=== PATIENT | male | born 1990 ===

== ENCOUNTER 2020-11-05 12:23 | Outpatient (CLI) | payer OTHER ==
[~2020-11-05] VITALS: Ht 175.3 cm; Wt 88.6 kg
--- NOTE | 2020-11-05 14:30 | Consultation ---
DATE OF CONSULTATION: 11/05/2020 CONSULTING PHYSICIAN: Saurabh Fenton MD. CHIEF COMPLAINT: Chronic GERD. HISTORY OF PRESENT ILLNESS: This is a 30-year-old male with severe acid reflux disease, already had omeprazole twice a day, Flonase, has been seen by ENT. He is still having significant symptoms, although changing his diet to low caffeine and taking omeprazole had improved his symptoms, but not completely resolved his symptoms. PAST MEDICAL HISTORY: 1. Deviated septum. 2. Hypercholesteremia. 3. Diverticulosis. 4. Diabetes type 2. 5. Hypertension. PAST SURGICAL HISTORY: None. MEDICATIONS: Please see medication reconciliation list. FAMILY HISTORY: No family history of GI malignancies. SOCIAL HISTORY: The patient denies any tobacco, alcohol, or drug abuse. PHYSICAL EXAMINATION: VITAL SIGNS: Temperature 97.2, blood pressure 144/95, pulse 120, respirations 20. HEENT: Normocephalic and atraumatic. Sclerae are anicteric. NECK: Supple. No evidence of obvious lymphadenopathy. CARDIOVASCULAR: Regular rate and rhythm. Plus S1, S2. LUNGS: Clear to auscultation bilaterally. ABDOMEN: Positive bowel sounds. Soft, nontender. No rebound. No guarding. No peritoneal sign. EXTREMITIES: No cyanosis. No clubbing No edema. ASSESSMENT AND PLAN: A 30-year-old male with significant GERD. After seeing the ENT and being on omeprazole, symptoms have improved, but not completely resolved, needs an endoscopy. The patient was educated about the diet for GERD and he is going to be scheduled for endoscopy when the authorization is obtained. Saurabh Fenton M.D. DR: FRANCISCO JOB#: [id number] CC:
[2020-11-07 13:46] VITALS: BP 144/95
[2020-11-07] MEDS ORDERED: METFORMIN HCL500 M1 ORAL (14:52)
[2020-11-07] MEDS ORDERED: TRULICITY0.75 MG/0. SQ (14:52)
[2020-11-07] MEDS ORDERED: FLONASE ALLERG9.9 ML NS (14:52)
[2020-11-07] MEDS ORDERED: DIOVAN80 MG ORAL (14:52)
[2020-11-07] MEDS ORDERED: ATORVASTATIN CA20 MG ORAL (14:52)
[2020-11-07] MEDS ORDERED: OMEPRAZOLE40 M1 ORAL (14:52)
== END 2020-11-05 14:23 | disposition home or self-care (01) ==
LOC: PAN 12:23
DX: K21.9 Gastro-esophageal reflux disease without esophagitis (principal); E78.00 Pure hypercholesterolemia, unspecified; E11.9 Type 2 diabetes mellitus without complications; I10 Essential (primary) hypertension
CPT/HCPCS: G0463